=== PATIENT | female | born 1990 | race African-American/Black ===

== ENCOUNTER 2018-05-27 23:57 | Emergency (ER) | payer OTHER ==
[2018-05-28 00:23] VITALS: BMI 46.0
[2018-05-28] MEDS ORDERED: SODIUM CHLORIDE 1,000 ML IV ONE (00:36)
[2018-05-28] MEDS ORDERED: METOCLOPRAMIDE HCL INJECTION 10 MG/2 ML VIAL IVPUSH ONE (00:52)
[2018-05-28] MEDS ORDERED: ACETAMINOPHEN 325 MG TABLET (FP) PO ONE (00:52)
--- NOTE | 2018-05-28 01:27 | PDOC ---
History of Present Illness - General Chief Complaint: Syncope/Near Syncope Stated Complaint: SYNCOPE Time Seen by Provider: 05/28/18 00:35 History Source: Patient Exam Limitations: No Limitations - History of Present Illness Initial Comments: 05/28/18 01:01 The patient is a 28 year old female , 2 months post with a significant PMH of HTN and asthma who presents to the emergency department with syncopal episode earlier today. Patient states she was experiencing a mild frontal pounding headache and dizziness prior to the syncopal episode.at approximately 10PM tonight. Patient woke up on the floor and could not recall any precipating factors other than the headache and dizziness. Patient reports she was having a mild headache throughout the day. Patient notes she has a history of ocassional headaches in the past, but states the headache today was worse than usual. Patient is 2 months post , and notes she has been hypotension after the . Patient endorses increased stress but otherwise no other changes in her daily life. The patient denies chest pain, shortness of breath, headache. Denies fever, chills, nausea, vomit, diarrhea and constipation. Denies dysuria, frequency, urgency and hematuria. Allergies: NKA Past surgical history: None reported. Social history: No reported alcohol, drug, or cigarette use Past History - Past Medical History Allergies/Adverse Reactions: Allergies Allergy/AdvReac Type Severity Reaction Status Date / Time No Known Allergies Allergy Verified 05/28/18 00:22 Home Medications: Ambulatory Orders NK [No Known Home Medication] 05/28/18 - Suicide/Smoking/Psychosocial Hx Smoking History: Never smoked Have you smoked in the past 12 months: No Information on smoking cessation initiated: No Hx Alcohol Use: No Drug/Substance Use Hx: No Review of Systems - Review of Systems Able to Perform ROS?: Yes Comments:: 05/28/18 01:28 Constitutional - no reported Fever, Chills, HEENT: no reported vision changes, sore throat Respiratory: no reported cough, sob, hemoptysis Cardiac: +light headedness, presyncope no reported chest pain, palpitations, leg swelling Abd/GI: no reported abd pain, nausea, vomiting, blood per rectum, melena, diarrhea : no reported dysuria, frequency, discharge Musculskelatal - no reported back pain, joint swelling skin - no reported bruising, erythema, rash neurological: + headache, photophobia, no reported numbness, focal weakness, tingling, ataxia, hematologic: no reported easy bruising, easy bleeding *Physical Exam - Vital Signs Last Vital Signs Temp Pulse Resp BP Pulse Ox 97.9 F 82 17 129/71 100 05/28/18 06:00 05/28/18 06:00 05/28/18 06:00 05/28/18 06:00 05/28/18 06:00 - Physical Exam Comments: 05/28/18 01:29 GENERAL: The patient is awake, alert, and fully oriented, Nontoxic - in no acute distress. HEAD: Normocephalic, atraumatic. EYES: extraocular movements intact, sclera anicteric, conjunctiva clear. ENT: Normal voice, Moist mucous membranes. NECK: Normal range of motion, supple LUNGS: Breath sounds equal, clear to auscultation bilaterally. No wheezes, no rhonchi, no rales. HEART: Regular rate and rhythm, normal S1 and S2 without murmur, rub or gallop. ABDOMEN: Soft, nontender, normoactive bowel sounds. No guarding, no rebound. . No CVA tenderness EXTREMITIES: Normal range of motion, no edema. No clubbing or cyanosis. No cords, erythema, or tenderness. NEUROLOGICAL: No facial assymetry, Normal speech, ,moving all 4 extremities spontaenosly and symmetrically PSYCH: Normal mood, normal affect. SKIN: Warm, Dry, normal turgor, ED Treatment Course - LABORATORY CBC & Chemistry Diagram: 05/28/18 02:15 05/28/18 02:15 - ADDITIONAL ORDERS Additional order review: 05/28/18 02:15 RBC 4.20 MCV 78.4 L MCHC 32.6 RDW 17.8 H MPV 7.5 Neutrophils % 61.5 Lymphocytes % 28.9 Monocytes % 6.3 Eosinophils % 2.2 Basophils % 1.1 - Medications Given in the ED: ED Medications Discontinued Medications Generic Name Dose Route Start Last Admin Trade Name Freq PRN Reason Stop Dose Admin Acetaminophen 650 mg 05/28/18 00:52 05/28/18 01:05 Tylenol - PO 05/28/18 00:53 650 mg ONCE ONE Administration Sodium Chloride 1,000 mls @ 1,000 mls/hr 05/28/18 00:36 05/28/18 01:03 Normal Saline - IV 05/28/18 01:35 1,000 mls/hr .Q1H ONE Administration Metoclopramide HCl 10 mg 05/28/18 00:52 05/28/18 01:05 Reglan Injection - IVPUSH 05/28/18 00:53 10 mg ONCE ONE Administration Sodium Chloride 1,000 ml 05/28/18 03:08 05/28/18 03:27 Normal Saline - IV 05/28/18 03:09 1,000 ml ONCE ONE Administration Medical Decision Making - Medical Decision Making 05/28/18 01:28 28y F (6wks post s/p term csection) presetns with complaint of feeling intermittent headache and lightehadedness. pt notes she has been ahving intermittent headaches, yesterday she endorsed a mild headache. suspect migraine headache vs tension headache from lack of sleep considered SAH, but do not believe to gradual onset and moderate nature will give fluids will ck labs, ua will reassess 05/28/18 02:23 pt esparza feeling improved awaitin glab work and for her to finish her fliuds will sign out to dr. robles to fu and reassess the patient *DC/Admit/Observation/Transfer Diagnosis at time of Disposition: Dehydration, Headache, Orthostasis - Discharge Dispostion Disposition: HOME Condition at time of disposition: Improved - Referrals - Patient Instructions Printed Discharge Instructions: Orthostatic Hypotension, DI for Dehydration -- Adult - Post Discharge Activity
[2018-05-28] MEDS ORDERED: METOCLOPRAMIDE HCL INJECTION 10 MG/2 ML VIAL ONE (02:08)
[2018-05-28] MEDS ORDERED: ACETAMINOPHEN 325 MG TABLET (FP) ONE (02:08)
[2018-05-28 02:30] LABS: BASO % 1.1 % (0-2.0); EOS % 2.2 % (0-4.5); HEMOGLOBIN 10.7 GM/dL (10.7-15.3); LYMPH % 28.9 % (8-40); MCH 25.6 pg (25.7-33.7); MCHC 32.6 g/dl (32.0-36.0); MEAN CELL VOLUME 78.4 fl (80-96); MEAN PLT VOLUME 7.5 fl (7.5-11.1); MONO % 6.3 % (3.8-10.2); NEUT % 61.5 % (42.8-82.8); PLATELET COUNT 272 K/MM3 (134-434); RDW 17.8 % (11.6-15.6); WHITE BLOOD COUNT 6.7 K/mm3 (4.0-10.0)
[2018-05-28 02:49] LABS: ALBUMIN 3.1 g/dl (3.4-5.0); ALK PHOS 106 U/L (45-117); ANION GAP 9 MMOL/L (8-16); BILIRUBIN,TOTAL 0.2 mg/dL (0.2-1); BLOOD UREA NITROGEN 14 mg/dL (7-18); CALCIUM 7.9 mg/dL (8.5-10.1); CHLORIDE 108 mmol/L (98-107); CO2 24 mmol/L (21-32); CREATININE 0.7 mg/dL (0.55-1.3); GLUCOSE,RANDOM 95 mg/dL (74-106); POTASSIUM 3.9 mmol/L (3.5-5.1); SGOT/AST 21 U/L (15-37); SGPT/ALT 39 U/L (13-61); SODIUM 141 mmol/L (136-145); TOT PROT 6.7 g/dl (6.4-8.2)
[2018-05-28] MEDS ORDERED: SODIUM CHLORIDE 0.9% 500 ML INFUS.BAG IV ONE (03:08)
--- NOTE | 2018-05-28 03:08 | PDOC ---
*Physical Exam - Vital Signs Last Vital Signs Temp Pulse Resp BP Pulse Ox 97.1 F L 78 18 89/42 L 98 05/28/18 00:22 05/28/18 00:22 05/28/18 00:22 05/28/18 00:22 05/28/18 00:22 ED Treatment Course - LABORATORY CBC & Chemistry Diagram: 05/28/18 02:15 05/28/18 02:15 - ADDITIONAL ORDERS Additional order review: Laboratory Results 05/28/18 05/28/18 02:15 02:15 Sodium 141 Potassium 3.9 Chloride 108 H Carbon Dioxide 24 Anion Gap 9 BUN 14 Creatinine 0.7 Creat Clearance w eGFR > 60 Random Glucose 95 Calcium 7.9 L Total Bilirubin 0.2 AST 21 ALT 39 Alkaline Phosphatase 106 Total Protein 6.7 Albumin 3.1 L Serum , Qual Negative 05/28/18 02:15 RBC 4.20 MCV 78.4 L MCHC 32.6 RDW 17.8 H MPV 7.5 Neutrophils % 61.5 Lymphocytes % 28.9 Monocytes % 6.3 Eosinophils % 2.2 Basophils % 1.1 - RADIOLOGY Radiology Studies Ordered: Category Date Time Status HEAD CT WITHOUT CONTRAST [CT] Stat CT Scan 05/28/18 03:03 Ordered - Medications Given in the ED: ED Medications Discontinued Medications Generic Name Dose Route Start Last Admin Trade Name Pauline PRN Reason Stop Dose Admin Acetaminophen 650 mg 05/28/18 00:52 05/28/18 01:05 Tylenol - PO 05/28/18 00:53 650 mg ONCE ONE Administration Sodium Chloride 1,000 mls @ 1,000 mls/hr 05/28/18 00:36 05/28/18 01:03 Normal Saline - IV 05/28/18 01:35 1,000 mls/hr .Q1H ONE Administration Metoclopramide HCl 10 mg 05/28/18 00:52 05/28/18 01:05 Reglan Injection - IVPUSH 05/28/18 00:53 10 mg ONCE ONE Administration *DC/Admit/Observation/Transfer Diagnosis at time of Disposition: Dehydration, Headache, Orthostasis - Discharge Dispostion Disposition: HOME Condition at time of disposition: Improved Decision to Admit order: No - Referrals - Patient Instructions Printed Discharge Instructions: DI for Dehydration -- Adult, Orthostatic Hypotension - Post Discharge Activity
[2018-05-28 06:46] VITALS: BP 129/71; PULSE 82; TEMP 97.9
--- NOTE | 2018-05-29 10:57 | EKG ---
Test Reason : Blood Pressure : / mmHG Vent. Rate : 070 BPM Atrial Rate : 070 BPM P-R Int : 170 ms QRS Dur : 084 ms QT Int : 420 ms P-R-T Axes : 015 043 015 degrees QTc Int : 453 ms NORMAL SINUS RHYTHM NORMAL ECG WHEN COMPARED WITH ECG OF 28-MAY-2018 00:29, NO SIGNIFICANT CHANGE WAS FOUND Confirmed by ROSALINO HOBSON MD ([id number]) on 05/29/2018 10:57:16 AM Referred By: Confirmed By:ROSALINO HOBSON MD
--- NOTE | 2018-05-30 10:40 | EKG ---
Test Reason : Blood Pressure : / mmHG Vent. Rate : 079 BPM Atrial Rate : 079 BPM P-R Int : 158 ms QRS Dur : 074 ms QT Int : 400 ms P-R-T Axes : 025 049 026 degrees QTc Int : 458 ms NORMAL SINUS RHYTHM NO PREVIOUS ECGS AVAILABLE Confirmed by YARY DANIEL MD ([id number]) on 05/30/2018 10:40:29 AM Referred By: Confirmed By:YARY DANIEL MD
== END 2018-05-28 06:05 | disposition home or self-care (01) ==
LOC: JER 23:57
PROC: 3E0337Z Introduction of Electrolytic and Water Balance Substance into Peripheral Vein, Percutaneous Approach (ICD-10-PCS; principal; 2018-05-27)
PROC: 3E033GC Introduction of Other Therapeutic Substance into Peripheral Vein, Percutaneous Approach (ICD-10-PCS; 2018-05-27)
DX: E86.0 Dehydration (principal); R51 Headache; I95.1 Orthostatic hypotension
CPT/HCPCS: 36415; 70450-TC; 80053; 84703; 85025; 93005; 93010; 96361; 96374; 99282-25; J7030